=== PATIENT | female | born 2000 | race Caucasian/White ===

== ENCOUNTER 2023-05-13 10:12 | Emergency (ER) | payer SELFPAY ==
[~2023-05-13] VITALS: Ht 149.9 cm; Wt 49.9 kg
[2023-05-13 10:25] VITALS: BP_SYST 109; PULSE 85; RESP 18; TEMP 97.3; O2SAT 98
[2023-05-13] MEDS ORDERED: LIDOCAINE 1% 10 MG/ML, 20 ML MDV INJ ONE (10:30)
[2023-05-13] MEDS: BACITRACIN 1 GM OINT TP ONE (10:50)
[2023-05-13] MEDS: DIPHTH,PERTUSS(ACELL),TET VAC 0.5 ML VIAL (Tdap) I.M. ONE (11:02)
[2023-05-13 11:12] LABS: BASOPHILS % (AUTO) 0.6 % (0.0-2.0); EOSINOPHILS # (AUTO) 0.1 K/uL (0.0-0.4); EOSINOPHILS % (AUTO) 1.7 % (0.0-4.0); HEMATOCRIT 40.6 % (36-48); HEMOGLOBIN 14.1 g/dL (12.0-16.0); LYMPHOCYTES # (AUTO) 2.4 K/uL (1.0-5.5); LYMPHOCYTES % (AUTO) 31.4 % (20.5-51.5); MEAN CORPUSCULAR HEMOGLOBIN 30 pg (27-31); MEAN CORPUSCULAR HGB CONC 35 % (32-36); MEAN CORPUSCULAR VOLUME 86 fL (79.0-98.0); MONOCYTES # (AUTO) 0.7 K/uL (0.0-1.0); MONOCYTES % (AUTO) 8.5 % (1.7-9.3); NEUTROPHILS # (AUTO) 4.5 K/uL (1.8-7.7); NEUTROPHILS % (AUTO) 57.8 % (40.0-70.0); PLATELET COUNT (AUTO) 291 K/uL (130-430); RED BLOOD CELL COUNT(AUTO) 4.72 MIL/uL (4.2-6.2); WHITE BLOOD COUNT (AUTO) 7.8 K/uL (4.8-10.8)
[2023-05-13 11:24] LABS: CALCIUM 8.9 mg/dL (8.4-11.0); CREATININE 0.5 mg/dL (0.55-1.30); POTASSIUM 3.5 mmol/L (3.5-5.1)
[2023-05-13] MEDS ORDERED: CLIN-22 PO (11:43)
[2023-05-13] MEDS ORDERED: IBUP-1969 PO (11:43)
[2023-05-13 11:50] VITALS: BP_SYST 108; PULSE 76; RESP 18; TEMP 97.9; O2SAT 96
== END 2023-05-13 11:48 | disposition home or self-care (01) ==
LOC: SED 10:12
DX: L72.3 Sebaceous cyst (principal); Z23 Encounter for immunization
CPT/HCPCS: 36415; 80048; 83605; 85025; 90715; 99284